=== PATIENT | male | born 1965 | race Caucasian/White ===

== ENCOUNTER 2020-01-10 21:01 | Emergency (ER) | payer MEDICAID ==
[~2020-01-10] VITALS: Ht 177.8 cm; Wt 96.2 kg
[2020-01-10 21:10] VITALS: BP 135/92
--- NOTE | 2020-01-10 21:21 | NUR ---
PT AMBULATED TO ER BED 7
[2020-01-10] MEDS ORDERED: IBUPROFEN 600 MG TAB PO ONE (21:30)
[2020-01-10] MEDS ORDERED: ALBUTEROL SULFATE/IPRATROPIU 3 ML SOL IH ONE (21:30)
--- NOTE | 2020-01-10 21:44 | NUR ---
PT STATES BREATHING IS EASIER POST NEB TX. C/O 12/28 MIDSTERNAL CP WITH COUGH. DENIES SOB.
--- NOTE | 2020-01-10 21:45 | NUR ---
PT C/O SOB, CHILLS, PRODUCTIVE COUGH, FEVER, BODY ACHES FOR 3 DAYS. STATES COUGH INDUCES 3/10 SUBSTERNAL CP WHICH ONLY LASTS FOR THE DURATION OF THE COUGH AND SUBSIDES. DENIES TAKING ANY MEDICATIONS FOR PAIN OR FEVER; STATES HE HAS BEEN TAKING OTC COUGH MEDICINE. LOW GRADE FEVER ON ASSESSMENT; PO MOTRIN GIVEN. PT DIAPHORETIC. RECEIVED NEB TX; BREATHING IMPROVED. VSS. NAUSEA WITH COUGHING. TO GIVE ODT ZOFRAN. DENIES RECENT TRAVEL OR EXPOSURE TO ILLNESS. STATES HE HAS HAD DIARRHEA FOR 3 DAYS. ABLE TO KEEP DOWN FLUIDS. DECREASED APPETITE. DENIES ABDOMINAL PAIN OR TENDERNESS ON PALPATION. ABDOMINAL QUADRANTS ACTIVE X4. WILL CONTINUE TO MONITOR. PMH: DM, HTN, PANCREATITIS NKA
--- NOTE | 2020-01-10 21:45 | NUR ---
LUNG SOUNDS WET; COARSE; INSPIRATORY AND EXPIRATORY WHEEZES. IMPROVED WITH BREATHING TX. WET COUGH PERSISTS POST TREATMENT. WHEEZING IMPROVED.
--- NOTE | 2020-01-10 21:45 | NUR ---
GAVE PO MOTRIN WILL CONTINUE TO MONITOR.
--- NOTE | 2020-01-10 21:46 | NUR ---
XRAY AT BEDSIDE
[2020-01-10] MEDS ORDERED: ONDANSETRON 4 MG ODT PO ONE (21:50)
[2020-01-10 22:30] VITALS: BP 135/92
--- NOTE | 2020-01-10 22:30 | NUR ---
Patient discharged with v/s stable. Written and verbal after care instructions given and explained. Patient alert, oriented and verbalized understanding of instructions. Ambulatory with steady gait. All questions addressed prior to discharge. ID band removed. Patient advised to follow up with PMD. Rx of ALBUTEROL, PRENISONE, PROMETHAZINE HYDROCHLORIDE WITH CODEINE given. Patient educated on indication of medication including possible reaction and side effects. Opportunity to ask questions provided and answered.
== END 2020-01-10 22:30 | disposition home or self-care (01) ==
LOC: MED 21:01
DX: J40 Bronchitis, not specified as acute or chronic (principal); A08.4 Viral intestinal infection, unspecified; E11.9 Type 2 diabetes mellitus without complications; I10 Essential (primary) hypertension
CPT/HCPCS: 71045; 87804; 94640; 99284; Q0092; Q0162

== ENCOUNTER 2020-01-19 16:13 | Emergency (ER) | payer MEDICAID, SELFPAY ==
[~2020-01-19] VITALS: Ht 177.8 cm; Wt 96.8 kg
[2020-01-19 16:14] VITALS: BP 138/79
[2020-01-19] MEDS ORDERED: ACETAMINOPHEN EXTRA STRENGTH 500 MG TAB PO ONE (16:30)
[2020-01-19] MEDS ORDERED: HYDROcodone/APAP 5/325 MG 1 TAB TAB PO ONE (16:50)
[2020-01-19] MEDS ORDERED: ONDANSETRON 4 MG ODT PO ONE (16:50)
[2020-01-19 19:05] VITALS: BP 142/87
== END 2020-01-19 19:05 | disposition home or self-care (01) ==
LOC: MED 16:13 → EEVIPCON 16:13 → MED 19:05
DX: J98.11 Atelectasis (principal); Z20.828 Contact with and (suspected) exposure to other viral communicable diseases; L08.9 Local infection of the skin and subcutaneous tissue, unspecified; E11.9 Type 2 diabetes mellitus without complications; I10 Essential (primary) hypertension
CPT/HCPCS: 36415; 71045; 99284; Q0092; Q0162; U0002